=== PATIENT | female | born 1965 | race American Indian/Alaskan Native ===

== ENCOUNTER 2022-03-08 21:21 | Emergency (ER) | payer SELFPAY ==
[2022-03-09] MEDS ORDERED: LIDOCAINE VISCOUS 2% 15 ML ORAL LIQD PO ONE (08:46)
[2022-03-09] MEDS ORDERED: ALUM-MAG HYDROXIDE-SIMETHICONE 200-200-20MG/5ML ORAL LIQD 30 ML PO ONE (08:46)
--- NOTE | 2022-03-09 08:49 | Emergency Department Report ---
ED Abdominal Pain HPI - General Chief Complaint: Abdominal Pain Stated Complaint: STOMACH PAIN/DIARRHEA Time Seen by Provider: 03/09/22 07:52 Source: patient Mode of arrival: Ambulatory Limitations: No Limitations - History of Present Illness Initial Comments: 56-year-old female history of hypertension presents to the emergency department with upper abdominal pain and diarrhea. Patient reports symptoms began on Sunday, but is progressively not improved. Taking multiple doses of Pepto- Bismol without improvement. Pain is worse with food and drinks, improves with nothing. Reports multiple episodes of watery stools a day, she denies fever, no bloody stools, no vomiting, no chest pain no shortness of breath, no dysuria or urinary symptoms. Pain does not radiate to the back. Denies prior history of GI surgeries. No recent travel or sick contacts, she denies any suspicious food intake. MD Complaint: abdominal pain -: Gradual Location: RUQ, epigastric Migration to: no migration Severity scale (0 -10): 10 Quality: stabbing, sharp Consistency: intermittent Improves With: nothing Worsens With: eating Associated Symptoms: diarrhea. denies: nausea, vomiting, chills, constipation, melena, hematuria - Related Data Home Medications Medication Instructions Recorded Confirmed Last Taken hydroCHLOROthiazide [Hctz] 12.5 mg PO QDAY 05/06/13 02/21/14 02/20/14 09:00 Previous Rx's Medication Instructions Recorded Last Taken Type Ibuprofen [Motrin] 800 mg PO Q8H PRN #14 tablet 02/21/14 Unknown Rx Dicyclomine [Bentyl] 10 mg PO QID PRN #20 capsule 03/09/22 Unknown Rx Omeprazole 20 mg PO QHS #30 03/09/22 Unknown Rx Ondansetron [Zofran Odt] 4 mg PO Q6H PRN #20 tab.rapdis 03/09/22 Unknown Rx Sulfamethoxazole/Trimethoprim 1 each PO BID #20 03/09/22 Unknown Rx [Bactrim DS TAB] Allergies Allergy/AdvReac Type Severity Reaction Status Date / Time No Known Allergies Allergy Verified 02/21/14 13:01 ED Review of Systems ROS: Stated complaint: STOMACH PAIN/DIARRHEA Other details as noted in HPI Constitutional: no symptoms reported Respiratory: no symptoms reported Cardiovascular: denies: chest pain Gastrointestinal: abdominal pain, diarrhea. denies: nausea Genitourinary: denies: urgency, dysuria Musculoskeletal: denies: back pain, joint swelling, arthralgia Skin: denies: rash, lesions Neurological: denies: headache, weakness, numbness, paresthesias, abnormal gait ED Past Medical Hx - Past Medical History Previous Medical History?: Yes Hx Hypertension: Yes Additional medical history: endometriosis - Surgical History Past Surgical History?: Yes Additional Surgical History: x 4. R hip surgery. L knee. R hand - Social History Smoking Status: Never Smoker Substance Use Type: None - Medications Home Medications: Home Medications Medication Instructions Recorded Confirmed Last Taken Type hydroCHLOROthiazide [Hctz] 12.5 mg PO QDAY 05/06/13 02/21/14 02/20/14 09:00 History Ibuprofen [Motrin] 800 mg PO Q8H PRN #14 tablet 02/21/14 Unknown Rx Dicyclomine [Bentyl] 10 mg PO QID PRN #20 capsule 03/09/22 Unknown Rx Omeprazole 20 mg PO QHS #30 03/09/22 Unknown Rx Ondansetron [Zofran Odt] 4 mg PO Q6H PRN #20 tab.rapdis 03/09/22 Unknown Rx Sulfamethoxazole/Trimethoprim 1 each PO BID #20 03/09/22 Unknown Rx [Bactrim DS TAB] ED Physical Exam - General Limitations: No Limitations General appearance: alert, in no apparent distress - Head Head exam: Present: atraumatic - Eye Eye exam: Present: normal appearance - ENT ENT exam: Present: normal exam, normal orophraynx - Neck Neck exam: Present: normal inspection. Absent: tenderness - Respiratory Respiratory exam: Present: normal lung sounds bilaterally. Absent: respiratory distress, wheezes - Cardiovascular Cardiovascular Exam: Present: regular rate, normal rhythm - GI/Abdominal GI/Abdominal exam: Present: soft, tenderness, normal bowel sounds. Absent: distended, guarding, rebound, diminished bowel sounds - Rectal Rectal exam: Present: deferred - External exam: Present: normal external exam. Absent: erythema, swelling ED Course Vital Signs 03/08/22 03/09/22 22:40 13:39 Temperature 98.7 F Pulse Rate 90 88 Respiratory 19 Rate Blood Pressure 131/89 Blood Pressure 140/86 [Left] O2 Sat by Pulse 98 Oximetry ED Medical Decision Making - Lab Data Result diagrams: 03/09/22 09:01 07/28/22 09:01 - Medical Decision Making Differential diagnosis includes gastroenteritis, gastritis, PUD, pancreatitis, diverticulitis, diverticulosis, colitis, 56-year-old presenting with upper abdominal pain nausea vomiting and diarrhea. Labs are reassuring, no white count, she is afebrile, lipase also reassuring, ultrasound is negative for acute findings no cholecystitis or gallstones. Patient does have a fatty liver otherwise she is tolerating oral intake ambulating steadily pain has been controlled. Urinalysis concerning for infection, will treat with Bactrim for reflex culture pending. Plan is to discharge her with referral to gastroenterology, PPI, antiemetics, dietary management supportive therapy with return precautions. All of this discussed with patient who verbalizes understanding of everything of discussed and will return as indicated. Critical care attestation.: If time is entered above; I have spent that time in minutes in the direct care of this critically ill patient, excluding procedure time. ED Disposition Clinical Impression: Upper abdominal pain, Gastritis, Fatty liver, Acute cystitis Disposition: HOME / SELF CARE / HOMELESS Is pt being admited?: No Does the pt Need Aspirin: No Condition: Stable Instructions: Gastritis, Adult, Abdominal Pain, Adult, [id number], Nonalcoholic Fatty Liver Disease Diet, Adult, Abdominal Pain (ED), Urinary Tract Infection, Adult, [id number] Prescriptions: Omeprazole 20 mg PO QHS #30 Dicyclomine [Bentyl] 10 mg PO QID PRN #20 capsule PRN Reason: Pain , Severe (7-10) Ondansetron [Zofran Odt] 4 mg PO Q6H PRN #20 tab.rapdis PRN Reason: N/V If Npo And No Iv Access Referrals: PRIMARY CARE, [Primary Care Provider] - 3-5 Days [facility] [Provider Group] - 3-5 Days Forms: Work/School Release Form(ED)
--- NOTE | 2022-03-09 10:31 | Ultrasound Report ---
ULTRASOUND ABDOMEN, LIMITED (RIGHT UPPER QUADRANT) INDICATION: right upper quad abd pain, epigastric pain, diarrhea, duration 2 days COMPARISON: CT abdomen pelvis 06/16/2012 LIMITATIONS: None FINDINGS: Pancreas: Visualized portion shows no significant abnormality. Liver: Moderate fatty infiltration without obvious focal lesion or enlargement. Hepatic length 15.4 c m. Main Portal Vein: Normal flow seen. Gallbladder: Small polyp seen but no definite calculi. No wall thickening. No fluid is seen within or surrounding the wall. Negative Coppola's sign reported by technologist. Bile ducts: Normal. Common Bile Duct measures 4 mm. Right Kidney: No obstructive changes seen. Lower pole bilobed but simple cyst measuring 3.6 cm. Free fluid: None. Additional Findings: None. IMPRESSION: No acute abnormalities are seen. Gallbladder polyp. Fatty infiltration of liver. Signer Name: Barrera Dodge MD Signed: 03/09/2022 10:27 AM Workstation Name: [id number]
[2022-03-09 11:49] LABS: Hematocrit 40.2 % (30.3-42.9); Hemoglobin 13.3 gm/dl (10.1-14.3); Mean Corpuscular HGB Conc 33 % (30-34); Mean Corpuscular Volume 86 fl (79-97); Platelet Count 300 K/mm3 (140-440); Red Blood Count 4.67 M/mm3 (3.65-5.03); Red Cell Distribution Width 14.2 % (13.2-15.2)
[2022-03-09 12:18] LABS: Alanine Aminotransferase 12 units/L (7-56); Albumin 3.9 g/dL (3.9-5); Blood Urea Nitrogen 8 mg/dL (7-17); Calcium 9.3 mg/dL (8.4-10.2); Hemolysis Index 2
[2022-03-09 12:26] LABS: BUN/Creatinine Ratio 16
[2022-03-09 12:31] LABS: Total Cells Counted 100
[2022-03-09 12:32] LABS: Anisocytosis 1+; Large Platelets Few; Platelet Estimate Consistent w Auto
[2022-03-09 13:39] VITALS: BP 140/86
[2022-03-09 13:45] LABS: Bacteria,Urine 2+ /HPF (Negative); Mucus,Urine FEW /HPF
[2022-03-09 13:51] LABS: Color,Urine Yellow (Yellow)
[2022-03-09 13:53] LABS: Bilirubin,Urine Negative (Negative); Blood,Urine Small (Negative); Urobilinogen,Urine < 2.0 mg/dL (<2.0)
== END 2022-03-09 13:39 | disposition home or self-care (01) ==
LOC: ED 21:21
DX: K29.70 Gastritis, unspecified, without bleeding (principal); R10.11 Right upper quadrant pain; K76.0 Fatty (change of) liver, not elsewhere classified; N30.00 Acute cystitis without hematuria; I10 Essential (primary) hypertension
CPT/HCPCS: 36415; 76705; 80053; 81001; 83690; 85007; 85025; 87086; 99284